=== PATIENT | female | born 1975 | race Caucasian/White ===

== ENCOUNTER → 2016-06-23 | Outpatient (CLI) | payer OTHER ==
--- NOTE | 2016-07-04 14:03 | Diagnostic Imaging Report ---
Indications: Screening Technique: Low dose film screen mammograms of both breasts was performed in craniocaudal, mediolateral oblique projections. Findings: Comparison: Screening mammogram performed at [facility] on 08/13/2014, made available for comparison 07/04/2016 Skin and nipples remain unremarkable. Axillae contain benign-appearing lymph nodes. Parenchyma heterogeneously dense, unchanged. Irregular nodular asymmetry of approximately 1 cm diameter is now suggested in the anterior 6:00 position of the right breast, not definitely seen previously. No architectural distortion, suspicious microcalcifications, or other abnormalities identified. IMPRESSION: Apparent new nodular asymmetry 6:00 right breast BI-RADS category 0: Additional imaging required Breast density BI-RADS type C. Recommendation: Additional mammographic and sonographic imaging of right breast.
== END | disposition home or self-care (01) ==
LOC: MAMMO 08:06
DX: Z12.31 Encounter for screening mammogram for malignant neoplasm of breast (principal)
CPT/HCPCS: 77067

== ENCOUNTER → 2016-09-12 | Outpatient (CLI) | payer OTHER ==
--- NOTE | 2016-09-12 16:06 | Diagnostic Imaging Report ---
Indications: Nodular asymmetry 6:00 right breast on recent screening mammogram, BI-RADS category zero Technique: Low dose filmscreen mammogram of right breast performed and true mediolateral projection. Compression spot imaging performed in mediolateral oblique and craniocaudal projections. Targeted ultrasound of right breast also performed. Findings: Comparison: Screening mammogram 06/23/2016 Nodular asymmetry in question in the 6:00 position of the right breast disappears on additional mammographic images. No underlying mass, architectural distortion, suspicious microcalcifications or other abnormalities identified. Concurrent ultrasound likewise demonstrates no focal abnormality, cystic or solid, in or near the 6:00 position of the right breast IMPRESSION: Disappearance of nodular asymmetry on additional imaging No evidence of malignancy BI-RADS category 2: Benign findings Rest density BI-RADS type C. Recommendations: Reversion routine screening mammography Dense parenchyma may obscure pathology. This report should not deter further evaluation of any clinically suspicious findings.
== END | disposition home or self-care (01) ==
LOC: MAMMO 08:50
DX: R92.8 Other abnormal and inconclusive findings on diagnostic imaging of breast (principal)
CPT/HCPCS: 76641; G0206